=== PATIENT | female | born 1940 | race Caucasian/White ===

== ENCOUNTER 2017-08-23 08:46 | Inpatient (IN) | payer MEDICARE, OTHER ==
--- NOTE | 2017-08-15 10:22 | Rehab Joint Replacement Pre-Op ---
Rehab Joint Replacement Pre-Op - Pre-Op Visit Reviewed Items Scheduled for Post Op Visit: Yes Scheduled Post Op Visit Date: 08/23/17 Pre-Op Visit Comment: Patient states lives in two story house with spouse. Patient states will only be using first floor following surgery. Patient states has 2 steps to enter with no railing. Patient states has walk in shower with seat, grab bars, and a hand held shower head. Patient states has an elevated toilet. Patient has a standard walker. Patient states will be having an SUV transport her home after surgery. Patient will have home PT after inpatient stay. Patient was instructed and displays good understanding of bed mobility and transfers. Patient was instructed and displays good understanding of HEP consisting of: quad sets, glut squeezes, ankle pumps, supine hip abduction, SLR, and supine heel slides. Patient was instructed and reports good understanding of hip precautions following surgery. Patient was instructed and reports good understanding of walker training and stair climbing. Patient was instructed and reports good understanding of car transfer. Dung Hose/Garment Measurement TKR - Knee High: N/A Dung Hose/Garment Measure THR - Thigh High: Yes (Ankle circumference: 8 3/4", Calf circumference: 13 1/2", Thigh circumference: 21", Leg length-Thigh high: 28 1/2", Knee high: 17". According to these measurements the correct size stocking: Medium-short) Exercise Reviewed: Yes Stair Climbing: Yes Cane/Walker/Crutch Training: Yes Vend Equipment - Cane or Walker and OT Kit: N/A List of Venders in the Area: Yes Shower Chair Transfers: Yes Car Transfers: Yes Bed Transfers: Yes Medical History Forms Issued: N/A Functional Scale Forms Issued: N/A
[~2017-08-23 08:46] MED LIST: 0.9 % SODIUM CHLORIDE 10 ML VIAL IVP ONE; CEFAZOLIN 2 Gram 2 GM/50 ML BAG IVPB ONE; CELECOXIB 100 MG CAPSULE PO ONE; FAMOTIDINE 20MG TABLET PO ONE; MECLIZINE 25 MG TABLET PO ONE; METOCLOPRAMIDE 10 MG TABLET PO ONE; TRANEXAMIC ACID 1,000 MG/10 ML ML IV ONE; VANCOMYCIN HCL 1,000 MG in DEXTROSE 5 % IN WATER 250 ML IVPB ONE
[2017-08-23 09:58] LABS: ABO GROUP A; ANTIBODY SCREEN NEGATIVE (NEGATIVE); RH TYPE POSITIVE
[2017-08-23] MEDS ORDERED: NALOXONE 0.4 MG/1 ML VIAL IVP PRN (13:09)
[2017-08-23] MEDS ORDERED: DIPHENHYDRAMINE HCL 25 MG CAPSULE PO PRN (13:09)
[2017-08-23] MEDS ORDERED: BISACODYL 10 MG SUPP RC PRN (13:09)
[2017-08-23] MEDS ORDERED: ACETAMINOPHEN 325 MG TAB PO PRN (13:09)
[2017-08-23] MEDS ORDERED: ONDANSETRON HCL IV 4 MG/2 ML VIAL IVP PRN (13:09)
[2017-08-23] MEDS ORDERED: ACETAMINOPHEN W/ CODEINE 300MG/60MG TABLET PO PRN ×2 (13:09)
[2017-08-23] MEDS ORDERED: AL HYDROX/MAG HYDROX 30ML UD PO PRN (13:09)
[2017-08-23] MEDS ORDERED: HYDROCODONE/APAP 10/325 TABLET PO PRN (13:09)
[2017-08-23] MEDS ORDERED: TRAMADOL HCL 50 MG TABLET PO PRN (13:09)
[2017-08-23] MEDS ORDERED: HYDROMORPHONE HCL 2 MG/ML VIAL IM PRN (13:09)
[2017-08-23] MEDS ORDERED: MAGNESIUM HYDROXIDE 30 ML UDC PO PRN (13:09)
[2017-08-23] MEDS ORDERED: ZOLPIDEM TARTRATE 5 MG TABLET PO PRN (13:09)
[2017-08-23] MEDS ORDERED: KETOROLAC 30 MG/ML VIAL IVP PRN ×2 (13:09)
[2017-08-23] MEDS ORDERED: MIDAZOLAM HCL 2MG/2ML VIAL IV ONE (14:00)
[2017-08-23] MEDS ORDERED: PROPOFOL 10 MG/ML VIAL IV ONE (14:00)
[2017-08-23] MEDS ORDERED: KETOROLAC 30 MG/ML VIAL IVP ONE (14:00)
[2017-08-23] MEDS ORDERED: FENTANYL PF 100MCG/2ML VIAL IV ONE (14:00)
[2017-08-23] MEDS ORDERED: PHENYLEPHRINE HCL 10 MG/ML VIAL IVP ONE (14:00)
[2017-08-23] MEDS ORDERED: ONDANSETRON HCL IV 4 MG/2 ML VIAL IVP ONE (14:00)
[2017-08-23] MEDS ORDERED: DIPHENHYDRAMINE HCL 50 MG/ML VIAL IVP ONE (14:00)
[2017-08-23] MEDS ORDERED: EPHEDRINE SULFATE 50 MG/ML ML IV ONE (14:00)
[2017-08-23] MEDS ORDERED: *PACU ONLY* KETAMINE HCL 10 MG/ML (20ML) VIAL IV ONE (14:00)
[2017-08-23] MEDS: POTASSIUM CHLORIDE/D5-0.9%NACL 20 MEQ/1,000 ML BAG IV SCH ×2 (14:55→22:55)
[2017-08-23] MEDS ORDERED: TRANEXAMIC ACID 1,000 MG/10 ML ML IV ONE (16:05)
--- NOTE | 2017-08-23 16:45 | Rehab Evaluation ---
Patient Information - Patient Information Diagnosis: R hip DJD Ordered Treatment: PT Evaluate and Treat Status: Initial Evaluation Surgery: Yes (R [facility]) Date of Surgery: 08/23/17 Past Medical/Surgical Hx: PAST MEDICAL/SURGICAL HISTORY Past Surgical History LTKA cardiac stent 10 yrs ago PMH - Respiratory Hx Respiratory Disorders Yes Comment: seasonal allergies PMH - Cardiovascular Hx Cardiovascular Disorders Yes Hx Cardiac Catheterization Yes Hx Edema No Hx Hypertension Yes: well controlled on meds Hx Vascular Disease Yes: varicose veins Hx Coronary Stent Yes: 10 yrs ago no problems since Exercise Tolerance Fair Comment: hyperlipidemia PMH - Neuro Hx Neurological Disorders No PMH - GI Hx Gastrointestinal Disorders No Hx Gastroesophageal Reflux Yes PMH - Hx Genitourinary Disorders No Hx Age of Menopause 48 Hx Kidney Stones Yes: 50+ years ago Comment: occassional stress incontinence PMH - Endocrine Hx Endocrine Disorders No PMH - Musculoskeletal Hx Musculoskeletal Disorders Yes Hx Arthritis Yes Hx Gout Yes: in past PMH - Psych Hx Psychiatric Problems No PMH - Hematology/Oncology Hx Hematology/Oncology No Disorders Premorbid Status: Detail (The patient was previously independent with all mobility.) Social History: Detail (The patient lives with spouse in a one story house with 2 steps at the enterance and one hand rail. The patient's bathroom is equipped with a walk in shower with a shower chair and an elevated toilet. No grab bars are present in the bathroom. the patient has her own standard walker.) Precautions: [place], Fall, Other (THR precautions. The patient required verbal cues to recall total hip precautions.) - Time With Patient Total Time Spent With Patient (Min): 30 Treatment Procedures: Detail (Initial Evaluation) Subjective Information - Subjective Information Per Patient (The patient had complaints of an aching in R hip but did not rate her pain using 0 to 10 pain scale.) Objective Data - Mental Status Patient Orientation: Oriented x3 (The patient was "groggy " and required repeated directions and tactile cues at times to complete mobility.) - Visual Perception Appears within normal limits for therapeutic activities - ROM Not within normal limits (The patient's R hip was within THR precautions.) - Strength/Tone Not within normal limits (The patient's LE strength was not tested s/p surgery however LE strength was functional. Patient was able to lift legs in and out of bed.) - Bed Mobility Needs Assist (The patient required minimal PA for sit to supine and moderate PA of 2 for sit to supine and verbal cues for proper technique.) - Transfers Needs Assist (The patient required moderate PA of 2 for sit to stand and CG of 1 and verbal cues for stand to sit.) - Balance Balance Sitting: Good Balance Standing: Fair (The patient required support of walker to stand.) - Sensation Intact - Gait Detail (The patient ambulated with 2 wheeled walker a distance of 22 feet x 1 with CG of 1 plus 1 to handle IV WBAT on the R LE and verbal cues for proper technique.) Therapy Assessment - Therapy Assessment Detail (The patient required physical assist with mobility and frequent verbal cues . Feel the patient will progress well once the surgery effects diminish.) Problem List - Problem List Physical Therapy Problem List: Detail (1) Assistance with bed mobility and transfers 2) Non ambulatory on stairs 3) Decreased R LE strength status post surgery) Goals - Goals Physical Therapy Goals: 1) The patient will be independent with all bed mobility , safely following THR precautions. 2) The patient will be independent with all transfers. 3) The patient will ambulate with assistive device independently WBAT on the R LE without verbal cues for safety household distances. 4) The patient with ambulate on stairs with use of one railing with supervision for safety. 5) The patient will be independent with THR HEP and THR precautions. Prognosis - Prognosis Good Plan - Plan Physical Therapy Plan: PT 1-2 times a day until all inpatient PT goals are completed for bed mobility, gait training, transfer training and instruction in HEP.
--- NOTE | 2017-08-23 16:54 | Operative Note ---
DATE OF SURGERY: 08/23/17 PREOPERATIVE DIAGNOSIS: END-STAGE ARTHROSIS OF THE RIGHT HIP. POSTOPERATIVE DIAGNOSIS: END-STAGE ARTHROSIS OF THE RIGHT HIP. PROCEDURE: CEMENTLESS RIGHT TOTAL HIP ARTHROPLASTY USING PAPPAS-NEPHEW COMPONENTS WITH A SIZE 52 NO-HOLE REFLECTION CUP, A 32 MM DIAMETER, 35 DEGREE OFFSET LINER, A SIZE 13 STANDARD OFFSET CEMENTLESS ECHELON STEM WITH A -3, 32 MM DIAMETER HEAD. STAFF SURGEON: DR. GRIFFITH. ANESTHESIA: SPINAL. PREPARATION: CHLORAPREP. INDIVIDUAL CONSIDERATION: NONE. PROCEDURE: The patient was taken to the Operating Room and placed supine on the operating room table. She had a successful induction of a spinal anesthetic. She was then placed on her side, right side up, and her right leg and hip were prepped and draped in the usual fashion. The patient had direct posterior approach to the hip. Sharp dissection was carried down through the skin and subcutaneous tissues. Small veins were coagulated with a Bovie. The tensor gluteal fascia was opened along the entire length of the incision and deep retractors were placed. Short external rotators were identified, piriformis fossa and removed exposing the posterior capsule. The posterior capsulectomy was performed. The patient had a huge posterior wall osteophyte in this location. Osteotome was used to remove this large osteophyte. After I did this, I was able to dislocate the hip. The head was flat and it had devoid cartilage. An oscillating saw was then used was to osteotomize the femoral neck about a fingerbreadth above the lesser troch. A rim capsulectomy was performed starting with 45 mm reamer to ream just to the medial wall. I reamed the introitus, which was a 51 for a 52 cup. I just slightly under-reamed a 50. I had a decent bleeding cancellous bony bed. After irrigation, I impacted a size 52 no-hole reflection cup in 20 degrees of forward flexion and 40 degrees of abduction using the extra-articular alignment guide and bony landmarks. There was solid cementless fixation. The center cap screw was placed and after irrigation I then impacted a 32 mm diameter, 35 degree offset liner with the offset posteriorly/inferiorly. This gave an excellent stable acetabular construct and this was packed off. The proximal femur was delivered into the wound and box cutting osteotome was used to remove proximal metaphyseal bone. Mid stem reaming was done to a size 13. I started barely feeling cortex at maybe 12 to 12.5. I broached a 13. I was able to dial in about 20 degrees of anteversion although her natural anteversion angle was 0. I had solid cementless fixation with a broach, calcar reamed with a -3 head I had absolute stability. Removed the broach, irrigated out completely, impacted a standard offset size 13 stem with solid cementless fixation and solid calcar contact. I dried off the Bhat Taper, irrigated everything out, impacted a -3 head, and reduced the hip. I had normal shuck, full anterior stability and extension and external rotation. I flexed her up to put her knee up into her chest and even at 90 degrees of internal rotation, still had stability. After irrigation, hemostasis was obtained with a Bovie. The sciatic nerve was inspected and found to be completely intact. The tensor gluteal fascia was then closed with a running #2 Quill. 30 mL of saline mixed with a gram of Tranexamic acid was placed deep to this. The patient did receive a gram of Tranexamic Acid IV. The subcutaneous was closed in layers with running 0 Quill and the skin was closed with iron. I infiltrated the skin and subcutaneous tissues with 30 mL of 0.5% Marcaine with Epinephrine and a sterile Bulkee compressive Aquacel-type dressing was applied. The patient tolerated the procedure well. Needle and sponge counts were correct. Estimated blood loss was minimal and was she taken back to Recovery in good condition. There were no complications. JOB NUMBER: [id number] MTDD
[2017-08-23] MEDS: CEFAZOLIN 2 Gram 2 GM/50 ML BAG IVPB SCH (19:01)
[2017-08-23] MEDS: DOCUSATE SODIUM 100 MG CAPSULE PO SCH (21:52)
[2017-08-23] MEDS: METOPROLOL TART 50 MG TABLET PO SCH (21:52)
[2017-08-23] MEDS: LISINOPRIL 20 MG TABLET PO SCH (21:52)
[2017-08-23] MEDS ORDERED: SIMVASTATIN 20 MG TABLET PO SCH (22:00)
[2017-08-24] MEDS: HYDROCODONE/APAP 5/325MG TABLET PO PRN ×2 (02:32→10:21)
[2017-08-24] MEDS: CEFAZOLIN 2 Gram 2 GM/50 ML BAG IVPB SCH ×2 (02:33→11:52)
[2017-08-24] MEDS: POTASSIUM CHLORIDE/D5-0.9%NACL 20 MEQ/1,000 ML BAG IV SCH ×2 (06:12→16:42)
[2017-08-24 06:40] LABS: HEMATOCRIT 31.2 % (35.0-47.0); HEMOGLOBIN 9.3 gm/dl (11.6-16.0)
[2017-08-24 06:57] LABS: BLOOD UREA NITROGEN 11 mg/dL (8-23); CREATININE 0.7 mg/dL (0.5-0.9); EST GLOMERULAR FILTRATION RATE > 60 mL/min; GLUCOSE,RANDOM 147 mg/dL (74-109)
[2017-08-24] MEDS ORDERED: PANTOPRAZOLE SODIUM 40 MG TABLET PO SCH (07:00)
[2017-08-24] MEDS ORDERED: ASPIRIN 81 MG TABEC PO SCH (10:00)
[2017-08-24] MEDS ORDERED: RIVAROXABAN 10 MG TABLET PO SCH (10:00)
[2017-08-24] MEDS ORDERED: AMLODIPINE BESYLATE 5MG TAB PO SCH (10:00)
[2017-08-24] MEDS ORDERED: LORATADINE 10 MG TABLET PO PRN (10:00)
[2017-08-24] MEDS ORDERED: CALCIUM CARB/VITAMIN D 500MG/200IU PO SCH (10:00)
[2017-08-24] MEDS ORDERED: FERROUS SULFATE 325 MG TAB PO SCH (10:00)
[2017-08-24] MEDS: METOPROLOL TART 50 MG TABLET PO SCH (10:13)
[2017-08-24] MEDS: DOCUSATE SODIUM 100 MG CAPSULE PO SCH (10:14)
[2017-08-24] MEDS: LISINOPRIL 20 MG TABLET PO SCH (10:14)
--- NOTE | 2017-08-24 11:51 | Physical Therapy Tx Note ---
Physical Therapy Tx Note - Treatment Note Tolerated: Good Total Time Spent With Patient: 30 Physical Therapy Tx Note: Detail (The patient was in bed when PT arrived. The patient complained of R hip pain. The patient required maximal verbal cues and minimal PA of two for supine to sit( Patient's daughters were present and assisting PT). The patient required minimal to moderate PA of one with sit to and from stand transfer. The patient ambulated 60 feet x 1,WBAT on the R LE with wheeled walker with CG and verbal cues for proper walker use. The patient ambulated on stairs with verbal cues and CG of 1 for safety. The patient's daughters were present during the entire PT session and aware of patient's need for assistance. One of the patient's daughter's stated she has been helping her for quite a few months. The patient's HEP and THR precautions were reviewed with patient and family. The patient ambulated and transferred safely to toilet with CG and verbal cues for safety. The patient was left in chair with OT.) Physical Therapy Problem List: Detail (1) Assistance with bed mobility and transfers 2) Non ambulatory on stairs 3) Decreased R LE strength status post surgery) Physical Therapy Goals: 1) The patient will be independent with all bed mobility , safely following THR precautions. PARTIALLY MET FAMILY TO ASSIST. 2) The patient will be independent with all transfers PARTIALLY MET, FAMILY TO ASSIST. 3) The patient will ambulate with assistive device independently WBAT on the R LE with verbal cues for safety household distances. MET. 4) The patient with ambulate on stairs with use of one railing with supervision for safety.MET. 5) The patient will be independent with THR HEP and THR precautions. Physical Therapy Plan: Patient is discharged from inpatient therapy. Patient required assist with mobilty which is her previous functional level per family. Family was present during PT session and will be available to assist patient. The patient is to receive Home PT.
[2017-08-24] MEDS ORDERED: FLU VAC QS 2017-18 (INPT, 6MO+) 60MCG/0.5ML IM ONE (12:27)
--- NOTE | 2017-08-24 12:36 | Rehab Evaluation ---
Patient Information - Patient Information Diagnosis: R hip DJD Ordered Treatment: OT Evaluate and Treat Status: Initial Evaluation Surgery: Yes (R [facility]) Date of Surgery: 08/23/17 Past Medical/Surgical Hx: PAST MEDICAL/SURGICAL HISTORY Past Surgical History LTKA cardiac stent 10 yrs ago PMH - Respiratory Hx Respiratory Disorders Yes Comment: seasonal allergies PMH - Cardiovascular Hx Cardiovascular Disorders Yes Hx Cardiac Catheterization Yes Hx Edema No Hx Hypertension Yes: well controlled on meds Hx Vascular Disease Yes: varicose veins Hx Coronary Stent Yes: 10 yrs ago no problems since Exercise Tolerance Fair Comment: hyperlipidemia PMH - Neuro Hx Neurological Disorders No PMH - GI Hx Gastrointestinal Disorders No Hx Gastroesophageal Reflux Yes PMH - Hx Genitourinary Disorders No Hx Age of Menopause 48 Hx Kidney Stones Yes: 50+ years ago Comment: occassional stress incontinence PMH - Endocrine Hx Endocrine Disorders No PMH - Musculoskeletal Hx Musculoskeletal Disorders Yes Hx Arthritis Yes Hx Gout Yes: in past PMH - Psych Hx Psychiatric Problems No PMH - Hematology/Oncology Hx Hematology/Oncology No Disorders Premorbid Status: Detail (The patient was previously independent with all mobility. Pt. received VC's (d/t cognition) from daughters for most self-care skills, such as dressing and bathing, but was physically Ind. prior to sx. Pt. stated that she still drives on occasion, and prepared own meals. Daughters performed grocery shopping.) Social History: Detail (The patient lives with spouse and adult daughter in a one story house with 2 steps at the enterance and one hand rail. The patient's bathroom is equipped with a walk in shower (fixed shower head) with a shower chair and an elevated toilet. No grab bars are present in the bathroom. the patient has her own standard walker. Pt. stated she has a certified midwife, but does not use it.) Precautions: [place], Fall, Other (THR precautions. The patient required verbal cues to recall total hip precautions.) - Time With Patient Total Time Spent With Patient (Min): 45 Objective Data - Mental Status Patient Orientation: Person, Place (Pt. presented with severe STM deficits, with difficulty recalling 1-step directions and hip precautions. Daughters use frequent VC's when present.) - Visual Perception Appears within normal limits for therapeutic activities (with multimedia manager glasses) - ROM Not within normal limits (BUE shd flex approx. 140 degrees, but functional. All other BUE AROM WNL.) - Strength/Tone Not within normal limits (BUE strength WFL. LUE MMT shd flex and abd 4-/5, and LUE was slightly weaker than RUE in general. LUE biceps and triceps 4/5. RUE 4+/ 5.) - Coordination Other (Pt. presented with mild to moderate cognitive impairment that effects motor planning. Pt.'s FMC is WNL.) - Transfers Needs Assist (Frequent VC's sit<>stand and CGA. Pt. demo. a posterior lean.) - Balance Balance Sitting: Good Balance Standing: Fair - Sensation Intact (light touch intact BUE fingertips) - ADL's/IADL's Detail (Min A and max VC's UB dressing to [facility] gown and robe and don sweater. Mod A and max VC's to don brief and elastic waist pants. Pt. became nauseas and dizzy during dressing, resulting in more assistance being provided than what pt. may require. Educ. was provided in adaptive dressing techniques, hip kit AE, and application of hip precautions to ADL's, with frequent repetition and demo. Pt's daughters were present and demo. awareness and verbalized understanding.) Therapy Assessment - Therapy Assessment Detail (Pt. does not need in-pt. OT at this time. However, Pt. may benefit from an in-home OT evaluation and tx to maximize Ind. with self-care ADL's to return to prior level of functioning. Pt. has a positive support system, with and daughters who assist. Caregiver educ. was provided, and they demo. understanding.) Patient Education - Patient Education Teaching Topic: Equipment Use, Precautions Response: Return Demonstration, Reinforcement Needed, Verbalize Understanding Teaching Method: Discussion, Demonstration Teaching Recipient: Patient, Family (daughters) Barriers To Learning: Cognitive/Verbal (cognition effecting STM and motor planning.) Problem List - Problem List Physical Therapy Problem List: Detail (1) Assistance with bed mobility and transfers 2) Non ambulatory on stairs 3) Decreased R LE strength status post surgery) Goals - Goals Physical Therapy Goals: 1) The patient will be independent with all bed mobility , safely following THR precautions. PARTIALLY MET FAMILY TO ASSIST. 2) The patient will be independent with all transfers PARTIALLY MET, FAMILY TO ASSIST. 3) The patient will ambulate with assistive device independently WBAT on the R LE with verbal cues for safety household distances. MET. 4) The patient with ambulate on stairs with use of one railing with supervision for safety.MET. 5) The patient will be independent with THR HEP and THR precautions. Prognosis - Prognosis Moderate Plan - Plan Physical Therapy Plan: Patient is discharged from inpatient therapy. Patient required assist with mobilty which is her previous functional level per family. Family was present during PT session and will be available to assist patient. The patient is to receive Home PT. Occupational Therapy Plan: D/C from in-pt. OT services. Educ. provided to call rehab dept. if Q's.
--- NOTE | 2017-08-25 20:05 | Discharge Summary ---
DATE OF ADMISSION: 08/23/2017 DATE OF DISCHARGE: 08/24/2017 DATE OF SURGERY: 08/23/2017 HISTORY: Patty is a delightful 77-year-old female who presents with profound end- stage arthrosis of her right hip. She was admitted after a right total hip arthroplasty. Postoperatively she did fantastic. Her hospital course was unremarkable. DISCHARGE INSTRUCTIONS: The plan is to discharge her to home in the care of her family. Home PT and Visiting Nurse have been arranged. She will be given Ultram for pain. She will take four more days of Xarelto and then she will continue on with her daily Aspirin regimen and that will cover her for DVT prophylaxis. The Visiting Nurse will be following her at home and will remove her sutures in two weeks and she will follow-up in my office in four weeks. Her discharge hemoglobin was 9.3. She did not require transfusion. Her discharge condition was good. FINAL DIAGNOSIS/PRIMARY DIAGNOSIS: END-STAGE ARTHROSIS OF THE RIGHT HIP. SECONDARY DIAGNOSES: ACUTE OPERATIVE BLOOD LOSS ANEMIA. OPERATIONS AND PROCEDURES: CEMENTLESS RIGHT TOTAL HIP ARTHROPLASTY. JOB NUMBER: [id number] MTDD
== END 2017-08-24 17:25 | disposition home or self-care (01) | DRG 470 ==
LOC: MEDSURG 08:46
PROVIDERS: ADMIT Orthopaedic Surgery; ATTEND Orthopaedic Surgery
PROC: 0SR906A Replacement of Right Hip Joint with Oxidized Zirconium on Polyethylene Synthetic Substitute, Uncemented, Open Approach (ICD-10-PCS; principal; 2017-08-23 11:00)
DX: M16.11 Unilateral primary osteoarthritis, right hip (principal); I10 Essential (primary) hypertension; E78.00 Pure hypercholesterolemia, unspecified
CPT/HCPCS: 80048; 85014; 85018; 86850; 86900; 86901; 90686; 97166; 97530; J1200; J1885; J2370; J2405; J3480; J7060